=== PATIENT | male | born 1950 | race Caucasian/White ===

== ENCOUNTER 2020-11-30 08:32 | Outpatient (RCR) | payer MEDICARE, SELFPAY ==
[2020-11-30] MEDS: ACETAMINOPHEN 325 MG TABLET 650 MG PO (08:42)
[2020-11-30] MEDS: diphenhydrAMINE HCl CAP 25 MG CAPSULE PO (08:42)
[2020-11-30] MEDS: FAMOTIDINE 20 MG TABLET PO (08:42)
[2020-11-30 08:57] VITALS: BP 124/54; PULSE 70; RESP 20; TEMP 36.4; O2SAT 98
[2020-11-30 09:59] VITALS: BP 133/56; PULSE 73; RESP 20; O2SAT 98
--- NOTE | 2020-12-01 10:31 | PCDIET ---
Called Patient regarding Covid antibody infusion. No answer, left message to call if he had any questions or [email or web address]
== END 2020-11-30 16:28 | disposition home or self-care (01) ==
LOC: AMCINF 08:32
PROVIDERS: PCP Physician Assistant Medical; Referring Provider Physician Assistant Medical; Visit Provider Internal Medicine Hematology & Oncology
DX: Z23 Encounter for immunization (principal); U07.1 COVID-19; I10 Essential (primary) hypertension; I25.10 Atherosclerotic heart disease of native coronary artery without angina pectoris
CPT/HCPCS: A9270; J7050; M0243; Q0244